=== PATIENT | female | born 1965 | race Caucasian/White ===

== ENCOUNTER → 2016-09-16 | Outpatient (CLI) | payer BC ==
--- NOTE | 2016-09-18 10:05 | MM ---
Reason for exam: screening (asymptomatic). Last mammogram was performed 1 year ago. History: Patient is postmenopausal and is nulliparous. Physical Findings: A clinical breast exam by your physician is recommended on an annual basis and results should be correlated with mammographic findings. MG Screening Mammo w CAD Bilateral CC and MLO view(s) were taken. Prior study comparison: September 15, 2015, bilateral MG screening mammo w CAD. August 25, 2014, bilateral MG screening mammo w CAD. July 07, 2013, bilateral digital screening mammo w/CAD. The breast tissue is almost entirely fat. No significant changes when compared with prior studies. ASSESSMENT: Negative, BI-RAD 1 RECOMMENDATION: Routine screening mammogram of both breasts in 1 year.
== END | disposition home or self-care (01) ==
LOC: RADMAMWWP 15:38
PROVIDERS: ATTEND Internal Medicine
DX: Z12.31 Encounter for screening mammogram for malignant neoplasm of breast (principal)

== ENCOUNTER → 2018-02-05 | Outpatient (CLI) | payer BC ==
--- NOTE | 2018-02-05 11:23 | MM ---
Reason for exam: screening (asymptomatic). Last mammogram was performed 1 year and 5 months ago. History: Patient is postmenopausal and is nulliparous. Family history of breast cancer in maternal cousin. Physical Findings: A clinical breast exam by your physician is recommended on an annual basis and results should be correlated with mammographic findings. MG Screening Mammo w CAD Bilateral CC and MLO view(s) were taken. Prior study comparison: September 16, 2016, bilateral MG screening mammo w CAD. September 15, 2015, bilateral MG screening mammo w CAD. The breast tissue is almost entirely fat. There is no discrete abnormality. ASSESSMENT: Negative, BI-RAD 1 RECOMMENDATION: Routine screening mammogram of both breasts in 1 year.
== END ==
LOC: RADMAMWWP 07:56
PROVIDERS: ATTEND Internal Medicine
DX: Z12.31 Encounter for screening mammogram for malignant neoplasm of breast (principal)
CPT/HCPCS: 77067

== ENCOUNTER → 2020-08-24 | Outpatient (CLI) | payer BC ==
--- NOTE | 2020-08-25 14:23 | MM ---
Reason for exam: screening (asymptomatic). Last mammogram was performed 2 years and 7 months ago. History: Patient is postmenopausal and is nulliparous. Family history of breast cancer in maternal cousin. Physical Findings: A clinical breast exam by your physician is recommended on an annual basis and results should be correlated with mammographic findings. MG Screening Mammo w CAD Bilateral CC and MLO view(s) were taken. Prior study comparison: February 05, 2018, bilateral MG screening mammo w CAD. September 16, 2016, bilateral MG screening mammo w CAD. There are scattered fibroglandular densities. There is chronic nodularity in the right breast is stable. No significant changes when compared with prior studies. ASSESSMENT: Benign, BI-RAD 2 RECOMMENDATION: Routine screening mammogram of both breasts in 1 year.
== END | disposition home or self-care (01) ==
LOC: RADMAMWWP 09:33
PROVIDERS: ATTEND Internal Medicine
DX: Z12.31 Encounter for screening mammogram for malignant neoplasm of breast (principal); Z78.0 Asymptomatic menopausal state; Z80.3 Family history of malignant neoplasm of breast
CPT/HCPCS: 77067

== ENCOUNTER → 2022-03-28 | Outpatient (CLI) | payer BC ==
--- NOTE | 2022-03-29 16:00 | MM ---
Reason for Exam: Screening (asymptomatic). Last mammogram was performed 1 year(s) and 8 month(s) ago. Patient History: Menarche at age 12. Patient has no children. Left ovary removed at age 44. Right ovary removed at age 44. Hysterectomy at age 44. Postmenopausal. Maternal cousin had breast cancer. Risk Values: Kianna 5 year model risk: 1.4%. NCI Lifetime model risk: 9.9%. Prior Study Comparison: 09/16/2016 Bilateral Screening Mammogram, [facility]. 02/05/2018 Bilateral Screening Mammogram, [facility]. 08/24/2020 Bilateral Screening Mammogram, [facility]. Tissue Density: The breast tissue is almost entirely fat. Findings: Analyzed By CAD. No significant interval change is evident. No suspicious groups of microcalcifications, spiculated or lobular masses, architectural distortion or other secondary signs of malignancy are mammographically apparent. Overall Assessment: Negative, BI-RAD 1 Management: Screening Mammogram of both breasts in 1 year. A negative mammogram report should not preclude additional follow up of suspicious palpable abnormalities. Patient should continue monthly self breast exam. A clinical breast exam by your physician is recommended on an annual basis and results should be correlated with mammographic findings. Electronically signed and approved by: Miller Sandhu D.O. Radiologis
== END | disposition home or self-care (01) ==
LOC: RADMAMWWP 07:45
PROVIDERS: ATTEND Internal Medicine
DX: Z12.31 Encounter for screening mammogram for malignant neoplasm of breast (principal); Z78.0 Asymptomatic menopausal state; Z80.3 Family history of malignant neoplasm of breast; Z90.721 Acquired absence of ovaries, unilateral
CPT/HCPCS: 77067

== ENCOUNTER 2022-07-30 08:34 | Day surgery (SDC) | payer BC ==
[~2022-07-30 08:34] MED LIST: LACTATED RINGERS 1,000 ML IV SCH; LIDOCAINE 1% (10MG/ML) FOR IV START INTRADERMA PRN
[2022-07-30 08:50] VITALS: TEMP 97.8
[2022-07-30] MEDS ORDERED: LIDOCAINE 2% INJ 20 MG/ML (2 ML VIAL) ONE (09:23)
[2022-07-30] MEDS ORDERED: PROPOFOL 10 MG/ML 20 ML VIAL IV ONE (09:23)
--- NOTE | 2022-07-30 09:24 | P.GSHP ---
History of Present Illness H&P Date: 07/30/22 Chief Complaint: Colon cancer screening 57-year-old female here today for colonoscopy. She says her last colonoscopy was performed approximately 10 years ago. History of colon polyps. No family history of colon cancer. No bowel complaints. Past Medical History Additional Past Medical History / Comment(s): + covid 05/20, hx polyps History of Any Multi-Drug Resistant Organisms: None Reported Past Surgical History: Hysterectomy Additional Past Surgical History / Comment(s): colonoscopy Past Anesthesia/Blood Transfusion Reactions: No Reported Reaction Smoking Status: Current every day smoker - Past Family History Father Family Medical History: No Reported History Mother Family Medical History: Cancer Additional Family Medical History / Comment(s): ovarian Medications and Allergies Home Medications Medication Instructions Recorded Confirmed Type Unk Thyroid Med 100 mcg PO DAILY 07/25/22 07/30/22 History Allergies Allergy/AdvReac Type Severity Reaction Status Date / Time No Known Allergies Allergy Verified 07/30/22 08:45 Surgical - Exam Vital Signs Temp Pulse Resp BP Pulse Ox 97.8 F 73 18 145/90 97 07/30/22 08:49 07/30/22 08:49 07/30/22 08:49 07/30/22 08:49 07/30/22 08:49 Physical exam: General: Well-developed, well-nourished HEENT: Normocephalic, sclerae nonicteric Abdomen: Nontender, nondistended Extremities: No edema Neuro: Alert and oriented Assessment and Plan (1) Colon cancer screening Narrative/Plan: Will proceed with colonoscopy at this time. Current Visit: Yes Status: Acute Code(s): Z12.11 - ENCOUNTER FOR SCREENING FOR MALIGNANT NEOPLASM OF COLON SNOMED Code(s): 036892975
--- NOTE | 2022-07-30 09:38 | P.PCN ---
Date of Procedure: 07/30/22 Procedure(s) Performed: PREOPERATIVE DIAGNOSIS: Screening with history of polyps POSTOPERATIVE DIAGNOSIS: Cecal polyp, ascending colon polyp, diverticulosis PROCEDURE: Colonoscopy with snare polypectomy ANESTHESIA: MAC SURGEON: Moises Jones M.D. SPECIMENS: Polyps ENDOSCOPIC PROCEDURE: The patient was placed on the endoscopy table in the left decubitus position. The Olympus colonoscope was inserted into the anus and passed under direct visualization to the base of the cecum. The appendiceal orifice was visualized. From that point the scope was slowly withdrawn inspecting all surfaces carefully. In the cecum a small polyp was seen and removed using the snare with cautery technique. The remainder of the cecum and ascending colon appeared normal. In the mid transverse colon another small polyp was seen and removed in a similar fashion. The remainder of the transverse descending sigmoid and rectum appeared normal. There was left-sided diverticulosis. Digital rectal examination was normal. The patient was taken to the recovery room in stable condition per anesthesia guidelines. RECOMMENDATIONS: Await biopsy results. Repeat colonoscopy 5 years.
[2022-07-30] MEDS ORDERED: IV FLUID CONTINUATION 1,000 ML IV ONE (09:41)
[2022-07-30 09:45] VITALS: RESP 16
[2022-07-30 09:59] VITALS: BP 128/80; PULSE 57
== END 2022-07-30 10:25 | disposition home or self-care (01) ==
LOC: ORWHC2ENDO 08:34
PROVIDERS: ATTEND Surgery
DX: Z12.11 Encounter for screening for malignant neoplasm of colon (principal); K63.5 Polyp of colon; K57.30 Diverticulosis of large intestine without perforation or abscess without bleeding; F17.200 Nicotine dependence, unspecified, uncomplicated; Z86.010 Personal history of colon polyps; Z80.41 Family history of malignant neoplasm of ovary; Z86.16 Personal history of COVID-19; Z79.899 Other long term (current) drug therapy
CPT/HCPCS: 88305; 45385; J2704; J2001

== ENCOUNTER → 2023-05-29 | Outpatient (CLI) | payer BC ==
--- NOTE | 2023-05-29 10:27 | MM ---
Reason for Exam: Screening (asymptomatic). Last mammogram was performed 1 year(s) and 2 month(s) ago. Patient History: Menarche at age 12. Patient has no children. Left ovary removed at age 44. Right ovary removed at age 44. Hysterectomy at age 44. Postmenopausal. Maternal cousin had breast cancer. Risk Values: Kianna 5 year model risk: 1.5%. NCI Lifetime model risk: 9.7%. Prior Study Comparison: 02/05/2018 Bilateral Screening Mammogram, [facility]. 08/24/2020 Bilateral Screening Mammogram, [facility]. 03/28/2022 Bilateral MG screening mammo w CAD, [facility]. Tissue Density: The breast tissue is almost entirely fat. Findings: Analyzed By CAD. There is no suspicious group of microcalcifications or new suspicious mass. Overall Assessment: Negative, BI-RAD 1 Management: Screening Mammogram of both breasts in [address] [facility] will attempt to contact patient to return for supplemental views and ultrasound if indicated. Patient should continue monthly self-breast exams. A clinical breast exam by your physician is recommended on an annual basis. This exam should not preclude additional follow-up of suspicious palpable abnormalities. Note on Kianna scores and lifetime risk: 1. A Kianna score greater than 3% is considered moderate risk. If this is the case, consider specialist referral to assess eligibility for a risk reducing agent. 2. If overall lifetime risk for the development of breast cancer is 20% or higher, the patient may qualify for future screening with alternating mammogram and breast MRI. Electronically signed and approved by: Toni Bonilla DO
--- NOTE | 2023-05-29 20:23 | BD ---
EXAMINATION TYPE: Axial Bone Density DATE OF EXAM: 05/29/2023 CLINICAL HISTORY: 57 years old Female. ICD-10 CODE: M85.88 other bone dis N95.1 post menopausal Height: 58.25 Weight: 197.7 FRAX RISK QUESTIONS: Alcohol (3 or more units per day): no Family History (Parent hip fracture): no Glucocorticoids (More than 3mos): no History of Fracture in Adulthood: no Secondary Osteoporosis: 1. Type 1 Diabetes: no 2. Hyperthyroidism: no 3. Menopause before 45: yes 4. Malnutrition: no 5. Chronic liver disease: no Rheumatoid Arthritis: no Current Tobacco Use: yes RISK FACTORS HISTORY OF: Hip Fracture (Right/Left): no Spine Fracture: no History of Wrist Fracture: no Surgery to Spine/Hip(right/left)/Wrist (right/left): no MEDICATIONS: Thyroid Medications: Synthroid How Long: past 15 years Osteoporosis Medications: no EXAM MEASUREMENTS: Bone mineral densitometry was performed using the [employer] System. Bone mineral density as measured about the Lumbar spine is: ----- L1-L4(G/cm2): 1.084 T Score Values are as follows: ----- L1: -1.4 ----- L2: -1.2 ----- L3: -0.8 ----- L4: -0.2 ----- L1-L4: -0.8 Z Score Values are as follows: ----- L1: -1.3 ----- L2: -1.0 ----- L3: -0.7 ----- L4: -0.1 ----- L1-L4: -0.7 Baseline Study Bone mineral density about the R hip (g/cm2): 0.934 Bone mineral density about the L hip (g/cm2): 0.884 T Score values are as follows: -----R Neck: -1.6 -----L Neck: -1.7 -----R Total: -0.6 -----L Total: -1.0 Z Score values are as follows: -----R Neck: -1.1 -----L Neck: -1.1 -----R Total: -0.4 -----L Total: -0.8 Baseline Study FRAX%s: The graph provided illustrates a 6.8chance for a major osteoporotic fx and a 1.0chance for th e hips probability for fx in 10 years time. IMPRESSION: Osteopenia (T Score between -2.5 and -1). There is slightly increased risk of fracture and the patient may be considered for treatment. Re-Screen 2-5 years. NOTE: T-SCORE=SD OF THE YOUNG ADULT MEAN.
== END | disposition home or self-care (01) ==
LOC: RADMAMWWP 07:01
PROVIDERS: ATTEND Internal Medicine
DX: Z12.31 Encounter for screening mammogram for malignant neoplasm of breast (principal); M85.89 Other specified disorders of bone density and structure, multiple sites; Z78.0 Asymptomatic menopausal state; Z80.3 Family history of malignant neoplasm of breast
CPT/HCPCS: 77067; 77080

== ENCOUNTER → 2023-12-15 | Outpatient (CLI) | payer BC ==
--- NOTE | 2024-01-09 07:47 | CA ---
Transthoracic Echo Report Name: Lauryn Jaramillo Age: 58 Gender: F : 1965 Exam Date: 12/15/2023 14:50 Exam Location: [place] [facility] Ht (in): 60 Wt (lb): 206 Ordering Physician: Attending/Referring Phys: Cardiac Catheterization Technologist Tere Kat RDCS Procedure CPT: Indications: Cardiac Hx: Technical Quality: Good Contrast 1: Total Dose (mL): Contrast 2: Total Dose (mL): MEASUREMENTS (Male / Female) Normal Values 2D ECHO LV Diastolic Diameter PLAX 5.2 cm 4.2 - 5.9 / 3.9 - 5.3 cm LV Systolic Diameter PLAX 3.2 cm IVS Diastolic Thickness 1.0 cm 0.6 - 1.0 / 0.6 - 0.9 cm LVPW Diastolic Thickness 1.0 cm 0.6 - 1.0 / 0.6 - 0.9 cm LV Relative Wall Thickness 0.4 RV Internal Dim ED PLAX 3.2 cm LA Systolic Diameter LX 3.9 cm 3.0 - 4.0 / 2.7 - 3.8 cm LV Diastolic Volume MOD BP 96.1 cm??? 67 - 155 / 56 - 104 cm??? LV Systolic Volume MOD BP 41.3 cm??? 22 - 58 / 19 - 49 cm??? LV Ejection Fraction MOD BP 57.1 % >= 55 % LV Cardiac Index MOD BP 1961.1 cm???/min???m??? LV Diastolic Volume MOD 4C 86.0 cm??? LV Systolic Volume MOD 4C 39.7 cm??? LV Ejection Fraction MOD 4C 53.9 % LV Cardiac Index MOD 4C 1657.5 cm???/min???m??? LV Diastolic Length 4C 8.5 cm LV Systolic Length 4C 6.8 cm LV Diastolic Volume MOD 2C 98.4 cm??? LV Systolic Volume MOD 2C 37.6 cm??? LV Ejection Fraction MOD 2C 61.8 % LV Cardiac Index MOD 2C 2172.9 cm???/min???m??? LV Diastolic Length 2C 7.7 cm LV Systolic Length 2C 5.8 cm LA Volume 51.6 cm??? 18 - 58 / 22 - 52 cm??? LA Volume Index 25.3 cm???/m??? 16 - 28 cm???/m??? M-MODE Aortic Root Diameter MM 4.1 cm AV Cusp Separation MM 2.2 cm DOPPLER AV Peak Velocity 143.9 cm/s AV Peak Gradient 8.3 mmHg AI Peak Velocity 181.3 cm/s AI Peak Gradient 13.2 mmHg AI Pressure Half Time 779.8 ms MV Area PHT 3.1 cm??? Mitral E Point Velocity 47.6 cm/s Mitral A Point Velocity 81.7 cm/s Mitral E to A Ratio 0.6 MV Deceleration Time 243.8 ms FINDINGS Left Ventricle Left ventricular ejection fraction is estimated at 55-60 %. Left ventricular cavity size normal. Normal left ventricular systolic function with no obvious regional wall motion abnormalities. Left ventricular cavity size normal. Right Ventricle Normal right ventricular size and function. Unable to estimate the right ventricular systolic pressure. Right Atrium Normal right atrial size. No right atrial thrombus or mass seen. Left Atrium Mildly increased left atrial diameter. No left atrial thrombus or mass present. Mitral Valve Structurally normal mitral valve. No mitral stenosis, regurgitation or prolapse. Aortic Valve Trileaflet aortic valve. Thickened aortic valve without stenosis. Mild aortic regurgitation. Tricuspid Valve Structurally normal tricuspid valve. No tricuspid stenosis, regurgitation or prolapse. Pulmonic Valve Structurally normal pulmonic valve. No pulmonic regurgitation. Pericardium No pericardial or pleural effusion. Aorta Moderate aortic dilatation at the level of the sinuses of valsalva 41 mm CONCLUSIONS 1. Normal left ventricular size and systolic function 2. Mild aortic regurgitation Previewed by: Dr. Eyv Blair MD (Electronically Signed) Final Date: 16 December 2023 12:38
== END | disposition home or self-care (01) ==
LOC: RADECHMAIN 14:00
PROVIDERS: ATTEND Internal Medicine
DX: E78.2 Mixed hyperlipidemia (principal); I35.8 Other nonrheumatic aortic valve disorders
CPT/HCPCS: 93306